=== PATIENT | female | born 1995 | race Native Hawaiian/Other Pacific Islander ===

== ENCOUNTER 2017-03-11 02:29 | Emergency (ER) | payer OTHER ==
[2017-03-11 02:50] VITALS: O2SAT 100
[2017-03-11] MEDS ORDERED: Sodium Chloride 0.9% 1,000 ML IV STA (03:19)
[2017-03-11 03:46] LABS: HEMATOCRIT 38.9 % (34.0-47.0); MEAN CORPUSCULAR HEMOGLOBIN 30.5 pg (27.0-31.0); MEAN CORPUSCULAR HGB CONC 33.5 g/dL (33.0-37.0); RED CELL DISTRIBUTION WIDTH 12.6 % (11.5-14.5); WHITE BLOOD COUNT 12.8 K/uL (4.8-10.8)
[2017-03-11 03:59] LABS: ALB/GLOB RATIO 1.4 (1.0-2.1); ALKALINE PHOSPHATASE 78 U/L (38-126); ALT/SGPT 36 U/L (9-52); AST/SGOT 36 U/L (14-36); BILIRUBIN,TOTAL 0.9 mg/dl (0.2-1.3); BLOOD UREA NITROGEN 18 mg/dl (7-17); CALCIUM 9.5 mg/dL (8.4-10.2); CARBON DIOXIDE 24 mmol/L (22-30); CHLORIDE 102 mmol/L (98-107); GFR AFRICAN-AMERICAN > 60; GLUCOSE,RANDOM 125 mg/dL (65-105); LIPASE 113 U/L (23-300); POTASSIUM 3.8 MMOL/L (3.6-5.0); SODIUM 143 mmol/l (132-148); TOTAL PROTEIN 7.6 G/DL (6.3-8.2)
--- NOTE | 2017-03-11 04:07 | ED PDOC ---
HPI: Abdomen Time Seen by Provider: 03/11/17 02:46 Chief Complaint (Nursing): GI Problem Chief Complaint (Provider): Abdominal Pain History Per: Patient History/Exam Limitations: no limitations Onset/Duration Of Symptoms: Hrs (9) Current Symptoms Are (Timing): Still Present Severity: Moderate Location Of Pain/Discomfort: Diffuse Associated Symptoms: Nausea, Vomiting, Diarrhea, Back Pain, Chest Pain Additional Complaint(s): Marty Vargas is a 21 y/o female presenting to the ER on 03/11/2017 with complaints of diffuse abdominal pain. Patient reports pain began around 19:00 last night and is associated with back pain, chest pain, shortness of breath, nausea, and vomiting. She states she took antibiotics she obtained in [place] prior to arrival in the ED. Patient additionally reports chest pain and shortness of breath resembles a prior presentation in which she received treatment when diagnosed with an infection that radiated to her heart. Of note, patient is currently on her period with her last L&P 2-3 days ago Past Medical History Reviewed: Historical Data, Nursing Documentation, Vital Signs Vital Signs: Last Vital Signs Temp 97.3 F L 03/11/17 02:47 Pulse 78 03/11/17 02:47 Resp 18 03/11/17 02:47 BP 116/73 03/11/17 02:47 Pulse Ox 100 03/11/17 04:11 - Medical History PMH: No Chronic Diseases - Surgical History Surgical History: No Surg Hx - Family History Family History: States: Unknown Family Hx - Social History Current smoker - smoking cessation education provided: No Alcohol: None Drugs: Denies - Allergies Allergies/Adverse Reactions: Allergies Allergy/AdvReac Type Severity Reaction Status Date / Time No Known Allergies Allergy Verified 03/11/17 02:50 Review of Systems ROS Statement: Except As Marked, All Systems Reviewed And Found Negative Cardiovascular: Positive for: Chest Pain Respiratory: Positive for: Shortness of Breath Gastrointestinal: Positive for: Nausea, Vomiting, Abdominal Pain Musculoskeletal: Positive for: Back Pain Physical Exam - Reviewed Nursing Documentation Reviewed: Yes Vital Signs Reviewed: Yes - Physical Exam Appears: Positive for: Non-toxic, No Acute Distress Head Exam: Positive for: ATRAUMATIC, NORMOCEPHALIC Skin: Positive for: Normal Color, Warm, Dry Eye Exam: Positive for: Normal appearance ENT: Positive for: Normal ENT Inspection Neck: Positive for: Normal, Painless ROM, Supple Cardiovascular/Chest: Positive for: Regular Rate, Rhythm. Negative for: Murmur Respiratory: Positive for: Normal Breath Sounds. Negative for: Wheezing, Respiratory Distress Gastrointestinal/Abdominal: Positive for: Tenderness (mildly diffuse ) Back: Negative for: L CVA Tenderness, R CVA Tenderness Extremity: Positive for: Normal ROM. Negative for: Deformity, Swelling Neurologic/Psych: Positive for: Alert, Oriented. Negative for: Motor/Sensory Deficits - Laboratory Results Result Diagrams: 03/11/17 03:41 03/11/17 03:41 - ECG O2 Sat by Pulse Oximetry: 100 Medical Decision Making Medical Decision Makin:46 Initial Impression- Abdominal Pain Initial Plan- * EKG * CK-MB * CMP * Creatine Phosphokinase * Lipase * Troponin * Urine Preg * Urine Dip * CXR * Sodium Chloride 1,000 ml IV * Toradol 15 mg IVP * Zofran 4 mg IV * Urine Cx * Urinalysis Pt was re-evaluated. Reports improved condition after trial of Toradol. Documented by Raine Mi, acting as a scribe for Mari Lang PA-C. Pt sleeping on re-evaluation at 0523. Pt reports feeling better. All labs normal except urine however patient reports menses. (-) nitrites Denies urinary symptoms. All medical record entries made by the Scribe were at my direction and personally dictated by me. I have reviewed the chart and agree that the record accurately reflects my personal performance of the history, physical exam, medical decision making, and the department course for this patient. I have also personally directed, reviewed, and agree with the discharge instructions and disposition. Disposition - Clinical Impression Clinical Impression: Gastroenteritis - Patient ED Disposition Is Patient to be Admitted: No Counseled Patient/Family Regarding: Diagnosis, Need For Followup - Disposition Referrals: [facility] [Outside] Disposition: Routine/Home Disposition Time: 05:25 Condition: GOOD
[2017-03-11 04:27] LABS: RBC URINE 90 /hpf (0-3); URINE BACTERIA RARE (<OCC); URINE BILIRUBIN NEGATIVE (NEGATIVE); URINE BLOOD LARGE (NEGATIVE); URINE COLOR YELLOW (YELLOW); URINE GLUCOSE (UA) NEG (Normal); URINE KETONE TRACE mg/dL (NEGATIVE); URINE LEUKOCYTE ESTERASE MOD Leu/uL (Negative); URINE PROTEIN 30 mg/dL (NEGATIVE); URINE UROBILINOGEN 0.2-1.0 mg/dL (0.2-1.0); WBC URINE 160 /hpf (0-5)
[2017-03-11 05:26] VITALS: BP 120/70; PULSE 82; RESP 16; TEMP 98.2
--- NOTE | 2017-03-11 08:38 | RAD ---
HISTORY: sob COMPARISON: No prior. TECHNIQUE: Chest PA and lateral FINDINGS: LUNGS: No active pulmonary disease. PLEURA: No significant pleural effusion identified. No pneumothorax apparent. CARDIOVASCULAR: Normal. OSSEOUS STRUCTURES: No significant abnormalities. VISUALIZED UPPER ABDOMEN: Normal. OTHER FINDINGS: None. IMPRESSION: No active disease.
--- NOTE | 2017-03-12 11:43 | CARD ---
APPROVED REPORT EKG Measurement Heart [id number] IN [id number] [id number] <Conclusion> Normal sinus rhythm with sinus arrhythmia Inferior infarct, age undetermined Abnormal ECG
== END 2017-03-11 06:07 | disposition home or self-care (01) ==
LOC: H.ER 02:29
DX: K52.9 Noninfective gastroenteritis and colitis, unspecified (principal)

== ENCOUNTER 2017-03-11 12:07 | Emergency (ER) | payer OTHER ==
[2017-03-11 12:23] VITALS: BP 97/70; PULSE 80; RESP 16; TEMP 98.1; O2SAT 99
--- NOTE | 2017-03-11 12:36 | ED PDOC ---
HPI: Abdomen Chief Complaint (Nursing): Abdominal Pain Chief Complaint (Provider): vomiting and diarrhea History Per: Patient History/Exam Limitations: no limitations Onset/Duration Of Symptoms: Days (1), Waxing/Waning, Intermittent Episodes Outside of [place] travel?: No Current Symptoms Are (Timing): Better Context: Food Severity: Mild Pain Scale Rating Of: 5 Location Of Pain/Discomfort: Periumbilical Quality Of Discomfort: Cramping Associated Symptoms: Nausea, Vomiting, Diarrhea, Loss Of Appetite. denies: Fever, Urinary Symptoms Exacerbating Factors: Food Alleviating Factors: Rest Last Bowel Movement: Yesterday Additional Complaint(s): 21 y/o female presenting to the ED w/ epigastric abdominal pain. Patient reports pain began around 19:00 last night and is associated with vomiting and diarrhea. Patient was seen in ED 03/11 AM and was discharged with dx of Viral Gastroenteritis. Patient states Intermittent abdominal cramping and 3 more episodes of NBNB vomiting, no hematemesis. No more diarrhea s/p ED discharge this AM. Causal factor: [place] food for dinner yesterday; denies recent travel or sick contacts. Currently denies f/c/abd pain/cp/focal weakness/back pain/urinary Sx. 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 Negative for: Fever Cardiovascular: Negative for: Chest Pain, Palpitations, Light Headedness Respiratory: Negative for: Cough Gastrointestinal: Positive for: Nausea, Vomiting, Abdominal Pain, Diarrhea. Negative for: Hematochezia, Hematemesis Genitourinary Female: Negative for: Dysuria, Hematuria, Vaginal Discharge, Pelvic Pain, Rash Skin: Negative for: Rash Neurological: Negative for: Weakness, Numbness, Incoordination, Confusion Physical Exam - Physical Exam Appears: Positive for: No Acute Distress Skin: Positive for: Warm, Dry Eye Exam: Positive for: EOMI, PERRL ENT: Negative for: Nasal Congestion, Pharyngeal Erythema Neck: Positive for: Painless ROM Extremity: Positive for: Normal ROM. Negative for: Tenderness, Pedal Edema, Calf Tenderness, Swelling - ECG O2 Sat by Pulse Oximetry: 99 - Progress ED Course And Treament: Viral Gasteroenteritis all labs from 4/18 AM reviewed, agree with diagnosis zofran 8 mg ODT PO fluids improved at the time of reassessment Re-evaluation Time: 16:11 Condition: Improved Disposition - Clinical Impression Clinical Impression: Gastroenteritis - Patient ED Disposition Is Patient to be Admitted: No - Disposition Disposition: Routine/Home Disposition Time: 16:12 Condition: GOOD
[2017-03-11] MEDS ORDERED: Sodium Chloride 0.9% 1,000 ML IV SCH (14:15)
[2017-03-11 15:12] LABS: RBC URINE 56 /hpf (0-3); RENAL EPITHELIAL 1 /hpf (0-3); URINE BACTERIA RARE (<OCC); URINE BILIRUBIN NEGATIVE (NEGATIVE); URINE BLOOD MODERATE (NEGATIVE); URINE COLOR YELLOW (YELLOW); URINE GLUCOSE (UA) NEG (Normal); URINE KETONE 20 mg/dL (NEGATIVE); URINE LEUKOCYTE ESTERASE TRACE Leu/uL (Negative); URINE PROTEIN 30 mg/dL (NEGATIVE); URINE UROBILINOGEN 0.2-1.0 mg/dL (0.2-1.0); WBC URINE 33 /hpf (0-5)
== END 2017-03-11 17:02 | disposition home or self-care (01) ==
LOC: H.ER 12:07
DX: K52.9 Noninfective gastroenteritis and colitis, unspecified (principal)